=== PATIENT | male | born 1995 | race African-American/Black ===

== ENCOUNTER 2021-02-20 11:59 | Emergency (ER) | payer MEDICAID ==
[~2021-02-20] VITALS: Ht 170.2 cm; Wt 86.0 kg
[2021-02-20] MEDS ORDERED: KETOROLAC 30MG/ML VIAL IM ONE (13:30)
[2021-02-20] MEDS ORDERED: IBUP-2029 MT (13:44)
[2021-02-20] MEDS ORDERED: AMOX-494 MT (13:44)
[2021-02-20 13:52] VITALS: BP 138/79
== END 2021-02-20 14:02 | disposition home or self-care (01) ==
LOC: ER 11:59
DX: U07.1 COVID-19 (principal); J02.9 Acute pharyngitis, unspecified
CPT/HCPCS: 71045; 96372; 99284; C9803; J1885; U0003; U0005

== ENCOUNTER 2021-03-14 10:56 | Emergency (ER) | payer MEDICAID ==
[~2021-03-14] VITALS: Ht 170.2 cm; Wt 86.0 kg
[~2021-03-14 10:56] MED LIST: AMOX-494 MT; IBUP-2029 MT
[2021-03-14 11:02] VITALS: BP 155/77
[2021-03-14] MEDS ORDERED: LORATADINE 10MG TABLET PO SCH (14:00)
[2021-03-14] MEDS ORDERED: GUAIFENESIN/DM 600MG/30MG ER TAB 12HR PO PRN (14:00)
[2021-03-14] MEDS ORDERED: GUAI-453 MT (14:52)
[2021-03-14] MEDS ORDERED: P-EP-312 MT ×2 (14:52)
== END 2021-03-14 15:12 | disposition home or self-care (01) ==
LOC: ER 10:56
DX: J30.2 Other seasonal allergic rhinitis (principal); J45.909 Unspecified asthma, uncomplicated
CPT/HCPCS: 71045; 99283

== ENCOUNTER 2021-03-17 11:50 | Emergency (ER) | payer MEDICAID ==
[~2021-03-17] VITALS: Ht 167.6 cm; Wt 82.0 kg
[~2021-03-17 11:50] MED LIST changes: +GUAI-453 MT
[2021-03-17] MEDS ORDERED: IPRATROPIUM BROMIDE (0.02%) 0.5MG/2.5ML NEB HHN STA (14:39)
[2021-03-17] MEDS ORDERED: ALBUTEROL (0.083%) 2.5MG/3ML NEB HHN STA (14:39)
[2021-03-17 16:50] VITALS: BP 158/80
[2021-03-17] MEDS ORDERED: ALBU6.7H9 INH (16:52)
[2021-03-17] MEDS ORDERED: GUAI-453 MT (16:52)
== END 2021-03-17 16:57 | disposition home or self-care (01) ==
LOC: ER 11:50
DX: J06.9 Acute upper respiratory infection, unspecified (principal); J45.901 Unspecified asthma with (acute) exacerbation; Z20.822 Contact with and (suspected) exposure to COVID-19
CPT/HCPCS: 71045; 94640; 99284; C9803; U0003; U0005; Z7610